=== PATIENT | male | born 1990 | race Caucasian/White ===

== ENCOUNTER 2020-12-19 07:49 | Outpatient (CLI) | payer BC, SELFPAY ==
--- NOTE | 2021-01-05 17:04 | WPDSLEEPSTUD ---
Sleep Study Date of Study: 12/19/20 <Shruthi Epperson DO - Last Filed: 01/05/21 17:28> Ordering Provider: Emigdio Solis MD <Shruthi Epperson - Last Filed: 01/05/21 17:28> Interpreting Physician: Shruthi Epperson DO <Shruthi Epperson - Last Filed: 01/05/21 17:28> Sleep Study Type: Polysomnogram <Shruthi Epperson DO - Last Filed: 01/05/21 17:28> Height: 1.8 m <Shruthi Epperson DO - Last Filed: 01/05/21 17:28> Weight: 95.254 kg <Shruthi Epperson DO - Last Filed: 01/05/21 17:28> Body Mass Index: 29.2 <Shruthi Epperson - Last Filed: 01/05/21 17:28> Neck Circumference (inches): 16 <Shruthi Epperson DO - Last Filed: 01/05/21 17:28> [place]: 14 <Shruthi Epperson DO - Last Filed: 01/05/21 17:28> Reason for Sleep Study Unrefreshing sleep, daytime sononlence, full body twitches throughout the entire night. <Shruthi Epperson DO - Last Filed: 01/05/21 17:28> Sleep History The patient is a 30 y/o male that has ADD symptoms in addition to unrefreshing sleep and daytime somnolence. the patient denies awakening from sleep short of breath. He rarely awakens at night with heartburn, belching or cough. He frequently snores loud enough that others complain. He occasionally has trouble sleeping when he has a cold. He denies waking up gasping for air throughout the night. He occasionally has breathing problems at night observed by others. He frequently sweats excessively at night. He denies heart palpitations or irregular heartbeats throughout the night. He frequently falls asleep during the day and occasionally while driving. He denies sleep paralysis and cataplexy. He occasionally has trouble at school work due to sleepiness. He occasionally experiences vivid dreamlike scenes upon awakening or falling asleep. He rarely has nightmares. He rarely feels sad or depressed. He rarely feels anxious. He constantly notices parts of his body jerk. He constantly kicks during the night. He constantly experiences crawling and aching feelings in his legs. He occasionally has leg pain during the night. He rarely grinds his teeth during sleep but occasionally wakes up with jaw pain in the morning. He is occasionally wakened by pain during the night but never bothered by pain during the day. He occasionally wakes up feeling stiff in the morning with sore and achy muscles. The patient goes to bed at 9:00 p.m. on the weekdays and between 10 30 and 11:00 p.m. on the weekends. He can fall asleep within a few minutes. He wakes up a few times throughout the night but can fall back asleep immediately. He wakes up at 4:45 a.m. on the weekdays and between 8 and 9:00 a.m. on the weekends. He typically gets 6-8 hours of sleep per night. He currently lives with his fiancee. He does not consume any caffeinated beverages within 2 hours of going to bed. He does not engage in physical exercise before bedtime. He will watch television before falling asleep. He does not take any naps in the afternoon or the evening. He will have 1 energy drink per day. He denies tobacco, alcohol and recreational drug use. <Shruthi Epperson DO - Last Filed: 01/05/21 17:28> [facility] Past Medical History Medical History: Medical History BMI 28.0-28.9,adult Exposure to COVID-19 virus Sleep apnea with hypersomnolence <Shruthi Epperson DO - Last Filed: 01/05/21 17:28> Surgical History Surgical History: Surgical History H/O removal of cyst History of mandibular surgery History of nasal surgery Hx of tonsillectomy <Shruthi Epperson DO - Last Filed: 01/05/21 17:28> Family History Family History: Family History Mother Diabetes mellitus Sibling Diabetes mellitus Grand
[2021-01-05 17:17] VITALS: BMI 29.2
== END 2020-12-20 08:00 | disposition home or self-care (01) ==
LOC: ANHCSM 07:50
PROVIDERS: PCP Family Medicine; Visit Provider Family Medicine
DX: G25.81 Restless legs syndrome (principal); G47.30 Sleep apnea, unspecified
CPT/HCPCS: 95810

== ENCOUNTER → 2021-04-15 16:43 | Outpatient (CLI) | payer BC, SELFPAY ==
--- NOTE | ~2021-04-15 | XR_ITS ---
EXAMINATION: XR lumbar spine 2-3V DATE: 04/15/2021 16:55 INDICATION: Low back pain TECHNIQUE: Anteroposterior and lateral views of the lumbar spine, and cone-down lateral view of the l umbosacral junction were obtained. COMPARISON: None. FINDINGS: Alignment is normal. Vertebral body and disc heights are normal. Sacral arches are intact. Mild bilat eral sacroiliac osteoarthritis. Normal bowel gas pattern. IMPRESSION: 1. Mild bilateral sacroiliac osteoarthritis. Otherwise unremarkable lumbar spine radiographs. Reviewed, dictated and finalized at location A. TRAPPER IMPRESSION: 1. Mild bilateral sacroiliac osteoarthritis. Otherwise unremarkable lumbar spin e radiographs.
== END ==
PROVIDERS: Visit Provider Physician Assistant Medical
DX: M54.50 Low back pain, unspecified (principal); M47.898 Other spondylosis, sacral and sacrococcygeal region
CPT/HCPCS: 72100

== ENCOUNTER → 2021-06-02 10:37 | Outpatient (CLI) | payer BC, SELFPAY ==
--- NOTE | ~2021-06-02 | XR_ITS ---
EXAMINATION: XR ankle RT min 3V DATE: 06/02/2021 11:39 INDICATION: Right ankle injury. TECHNIQUE: 4 views of right ankle were obtained. COMPARISON: None. FINDINGS: Bone alignment is normal. There is a bone fragment distal to lateral malleolus. Joint space s are well maintained. There is an enthesophyte at posterior aspect of calcaneal tuberosity. There is ankle soft tissue swelling. IMPRESSION: 1. Bone fragment distal to lateral malleolus, which may be an acute chip avulsion fracture or a findi ng from old injury. Reviewed, dictated and finalized at location A. IMPRESSION: 1. Bone fragment distal to lateral malleolus, which may be an acute chip avulsi on fracture or a finding from old injury.
== END ==
PROVIDERS: PCP Family Medicine; Visit Provider Nurse Practitioner Family
DX: S99.919A Unspecified injury of unspecified ankle, initial encounter (principal); M25.471 Effusion, right ankle; R93.7 Abnormal findings on diagnostic imaging of other parts of musculoskeletal system
CPT/HCPCS: 73610

== ENCOUNTER → 2021-06-11 10:10 | Outpatient (CLI) | payer BC, SELFPAY ==
--- NOTE | ~2021-06-11 | MR_ITS ---
EXAMINATION: MR lumbar spine wo con EXAM DATE: 06/11/2021 10:33 INDICATION: M54.50 - Low back pain, unspecified TECHNIQUE: Multi-sequential, multiplanar MR images of the lumbar spine were obtained without contrast . Sagittal T1, T2, T2 fat saturation images. Axial T2 weighted images. There is no prior study for comparison. FINDINGS: The vertebral bodies are aligned in the AP dimension. Vertebral body and disc heights are well-maintained. There are no suspicious marrow signal abnormalities. Paraspinal soft tissue is unre markable. The conus medullaris terminates at the T12-L1 level and has normal signal intensity and mor phology. Level by level evaluation: T12-L1: Disc does not extend beyond the endplate margin. Facet arthropathy: None. Neural foraminal stenosis: No stenosis. Central canal stenosis: No stenosis. L1-L2: Disc does not extend beyond the endplate margin. Facet arthropathy: None. Neural foraminal stenosis: No stenosis. Central canal stenosis: No stenosis. L2-L3: Disc does not extend beyond the endplate margin. Facet arthropathy: Mild. Neural foraminal stenosis: No stenosis. Central canal stenosis: No stenosis. L3-L4: Disc does not extend beyond the endplate margin. Facet arthropathy: Mild. Neural foraminal stenosis: No stenosis. Central canal stenosis: No stenosis. L4-L5: Disc does not extend beyond the endplate margin. Facet arthropathy: Mild. Neural foraminal stenosis: No stenosis. Central canal stenosis: No stenosis. L5-S1: Disc does not extend beyond the endplate margin. Facet arthropathy: Mild. Neural foraminal stenosis: No stenosis. Central canal stenosis: No stenosis. IMPRESSION: Mild lumbar facet arthropathy. No stenosis. Reviewed, dictated and finalized at location B.
== END ==
PROVIDERS: PCP Family Medicine; Visit Provider Nurse Practitioner Family
DX: M47.816 Spondylosis without myelopathy or radiculopathy, lumbar region (principal)
CPT/HCPCS: 72148

== ENCOUNTER 2023-12-07 15:11 | Outpatient (CLI) | payer BC, SELFPAY ==
--- NOTE | ~2023-12-07 | CT_ITS ---
CT of the Abdomen and Pelvis: Indication: Hematuria Technique: 2.5 mm axial scans were obtained through the abdomen and pelvis prior to and following in travenous administration of 130 cc of Omnipaque 350. Dose reduction technique was used on this scan b y utilizing automated exposure control and iterative reconstruction technique. The dose-length produc t (DLP) was 1946.12 mGy-cm. Findings: Scans through the lung bases are unremarkable. The liver, spleen, pancreas, adrenals and kidneys are within normal limits. 3 cm gallstone present. N o evidence of aortic aneurysm. No lymphadenopathy. No bowel obstruction or bowel wall thickening. There is no evidence to suggest acute appendicitis. Images through the pelvis were performed. Urinary bladder unremarkable. No pelvic mass seen. No ascit es. Impression: No etiology for hematuria identified. 3 cm gallstone. Reviewed, dictated and finalized at location . Impression: No etiology for hematuria identified. 3 cm gallstone.
== END 2023-12-07 15:12 | disposition home or self-care (01) ==
LOC: ANHIMG 15:13
PROVIDERS: PCP Family Medicine; Visit Provider Nurse Practitioner Adult Health
DX: R31.9 Hematuria, unspecified (principal); K80.20 Calculus of gallbladder without cholecystitis without obstruction
CPT/HCPCS: 74178; Q9967